=== PATIENT | male | born 1955 | race Caucasian/White ===

== ENCOUNTER 2023-05-19 10:00 | Emergency (ER) | payer OTHER, SELFPAY ==
[2023-05-19 10:06] VITALS: BP 147/81
[2023-05-19 10:38] VITALS: BMI 28.4
--- NOTE | 2023-05-19 10:57 | ED.GENMED ---
History of Present Illness
<AMANDA Hernandez - Last Filed: 05/19/23 15:18>
General
Chief Complaint: Male Genito-Urinary Symptoms
Source: patient
Exam Limitations: none
Time Seen by Provider: 05/19/23 10:36
Nursing documentation reviewed up to this point in time: agreed with
Travel History
Have you had any contact with someone who has COVID-19?: No
Do you have any symptoms of coronavirus? Fever > 100 degrees, chills, cough, shortness of breath, sore throat, loss of taste or smell, muscle aches, or headache?: No
History of Present Illness
History of Present Illness:
Patient is a 67-year-old male who presents to the ER for evaluation. Patient reports 2 days ago he was doing a surfing stimulator the [facility] and strained his left groin and leg. He describes landing in a split type position. He had pain to his
left groin and was seen in urgent care in the [facility]. He had an ultrasound of the room which showed large hematoma. He presents to the ER today complaining of significant bruising and swelling in his scrotum. Mild discomfort. He was on aspirin
prior to injury but stopped aspirin when injury occurred. He denies any difficulty urinating. He does complain of some bruising in his left groin lower abdomen and left thigh. He denies any lightheadedness weakness. He denies any numbness
tingling to the leg or distal foot.
Review of Systems
<AMANDA Hernandez - Last Filed: 05/19/23 15:18>
Review of Systems
Allergies reviewed?: Yes
All Other Systems: ROS reviewed and negative except as documented in HPI and ROS
Constitutional: Reports no symptoms; Denies fever, fatigue or chills
Respiratory: Reports no symptoms
Cardiac: Reports no symptoms
ABD/GI: Reports no symptoms and other (sore to lower abd); Denies nausea or vomiting
: Reports other (scrotum with swelling/ecchymosis ); Denies dysuria, flank pain, incontinence or urgency
Musculoskeletal: Reports other (Left thigh groin pain and ecchymosis)
Skin: Reports no symptoms
Neurological: Reports no symptoms
Hematologic/Lymphatic: Reports no symptoms
Psychiatric: Reports no symptoms
Phy Exam
<AMANDA Hernandez - Last Filed: 05/19/23 15:18>
General Physical Exam
General Presentation: no apparent distress
General age: appears stated age
General Skin: warm and dry
General Habitus: normal
General Mental: alert
Gastrointestinal Exam
Gastrointestinal Exam: soft and other (Minimal lower abdominal tenderness, bruising to the left inguinal area and suprapubic area)
Genitourinary Exam Male
Exam Male: other (Patient with generalized ecchymosis and swelling of scrotum)
Neurological Exam
Neurological Exam: alert and oriented x3
Musculoskeletal Exam
Musculoskeletal Exam: other (Ecchymosis to left groin /inner thigh ; strong distal pulses normal sensation)
Skin Exam
Skin Exam: normal color and warm/dry
Psychiatric Exam
Psychiatric Exam: normal mood/affect
Course
<AMANDA Hernandez - Last Filed: 05/19/23 15:18>
Orders/Labs/Results
Orders:
Orders
05/19/23 10:48
Urinalysis Reflex To Culture Urgent
Date Specimen was Collected: 05/19/23
Time Specimen was Collected: 10:46
Urine Microscopic Reflex Cult Urgent
05/19/23 11:07
US Scrotum Urgent
Comment:
Reason For Exam: bruising swelling
05/19/23 11:11
IV Insert/Care/Rem.- Treatment PRN
05/19/23 11:56
Complete Blood Count/With Diff Urgent
Comprehensive Metabolic Panel Urgent
05/19/23 12:18
CT Pelvis With Iv Contrast Urgent
Comment:
Reason For Exam: lower abd /groin/thigh injury /bruising
Abnormal Lab Results
05/19/23 05/19/23
10:48 11:56
RBC 3.84 L 10^6/uL
(4.70-6.10)
Hgb 12.2 L g/dL
(13.0-18.0)
Hct 35.0 L %
(39.0-52.0)
MCH 31.8 H pg
(27.0-31.0)
Absolute Monos (auto) 0.9 H 10^3/uL
(0.1-0.6)
Lymphocytes % 16.4 L %
(20.5-51.1)
Monocytes % 10.9 H %
(1.7-9.3)
Glucose 104 H mg/dl
(70-99)
AST 61 H U/L
(17-59)
Ur Occult Blood Reflex 1+ A
(Negative)
Leukocyte Esterase Rfl Trace A
(Negative)
Urine RBC 3-6 A /HPF
(0-2)
Urine Bacteria (Reflex) Few A
(Negative)
05/19/23 11:56
05/19/23 11:56
Vital Signs
Initial and Last Documented VS:
Initial Vital Signs
Temp Pulse Resp BP Pulse Ox
98.5 F 75 18 147/81 100
05/19/23 10:06 05/19/23 10:06 05/19/23 10:06 05/19/23 10:06 05/19/23 10:06
Last Documented Vital Signs
Temp Pulse Resp BP Pulse Ox
98.5 F 64 16 125/73 98
05/19/23 10:06 05/19/23 11:57 05/19/23 11:57 05/19/23 11:57 05/19/23 11:57
Overhead Irrigator consulted with Physician
Overhead Irrigator consulted with physician?: Yes
Name of Physician Consulted: humaira
<Rashard Parsons, DO - Last Filed: 05/19/23 11:25>
Orders/Labs/Results
Orders:
Orders
05/19/23 10:48
Urinalysis Reflex To Culture Urgent
Date Specimen was Collected: 05/19/23
Time Specimen was Collected: 10:46
Urine Microscopic Reflex Cult Urgent
05/19/23 11:07
US Scrotum Urgent
Comment:
Reason For Exam: bruising swelling
05/19/23 11:11
IV Insert/Care/Rem.- Treatment PRN
05/19/23 11:56
Complete Blood Count/With Diff Urgent
Comprehensive Metabolic Panel Urgent
05/19/23 12:18
CT Pelvis With Iv Contrast Urgent
Comment:
Reason For Exam: lower abd /groin/thigh injury /bruising
Abnormal Lab Results
05/19/23 05/19/23
10:48 11:56
RBC 3.84 L 10^6/uL
(4.70-6.10)
Hgb 12.2 L g/dL
(13.0-18.0)
Hct 35.0 L %
(39.0-52.0)
MCH 31.8 H pg
(27.0-31.0)
Absolute Monos (auto) 0.9 H 10^3/uL
(0.1-0.6)
Lymphocytes % 16.4 L %
(20.5-51.1)
Monocytes % 10.9 H %
(1.7-9.3)
Glucose 104 H mg/dl
(70-99)
AST 61 H U/L
(17-59)
Ur Occult Blood Reflex 1+ A
(Negative)
Leukocyte Esterase Rfl Trace A
(Negative)
Urine RBC 3-6 A /HPF
(0-2)
Urine Bacteria (Reflex) Few A
(Negative)
05/19/23 11:56
05/19/23 11:56
Vital Signs
Initial and Last Documented VS:
Initial Vital Signs
Temp Pulse Resp BP Pulse Ox
98.5 F 75 18 147/81 100
05/19/23 10:06 05/19/23 10:06 05/19/23 10:06 05/19/23 10:06 05/19/23 10:06
Last Documented Vital Signs
Temp Pulse Resp BP Pulse Ox
98.5 F 64 16 125/73 98
05/19/23 10:06 05/19/23 11:57 05/19/23 11:57 05/19/23 11:57 05/19/23 11:57
<AMANDA Hernandez - Last Filed: 05/19/23 15:18>
MDM/Problems Addressed
Differential Diagnosis Includes:
Not limited to hematoma, groin sprain strain, scrotal hematoma
MDM/Problems Addressed:
Patient is a 67yr old male who presents to the ER for evaluation. Patient had a pulling type injury of his left groin/thigh 2 days ago on vacation. He was in the [facility]. He complained of pain to the right groin and thigh area at that time. An
ultrasound was done of the left groin which showed a large hematoma in the left groin. Patient complains today of increasing swelling in the testicles, bruising and discomfort. He was on aspirin but stopped it when injury occurred. Patient has
obvious ecchymosis swelling to the scrotum however no significant tenderness. He has ecchymosis to lower abdomen and left groin.
Scrotal ultrasound really normal sonographic appearance of the bilateral testicles large amount of diffuse scrotal swelling and edema sonogram findings suspicious for a left quadrant lower muscle tear. labs unremarkable CT pending. Patient was
eval by urology will DC with scrotal support, tramadol. will see urology in 2 d for re-check
1510: CAT scan shows medial left groin hematoma likely arising from a chair of the inferior left rectus muscle. Patient in no acute distress wants to hold off on tramadol would like to take Tylenol only as needed. I did review CAT scan findings
with general surgery Dr. Vazquez who recommends ice compression, switch to heat in the next several days can see patient as an outpatient if needed. Patient stable for discharge home
<AMANDA Hernandez - Last Filed: 05/19/23 15:18>
*Radiology
Radiology exam reviewed: radiology read reviewed
*Pulse Oximetry
Patient hypoxic: no
*Critical Care Note
Total Time (30-74mins, 75-104mins- exclusive of procedures): Not Applicable
<AMANDA Hernandez - Last Filed: 05/19/23 15:18>
Patient Management
Discussion with other providers: Junk Removal Specialist (urology DR Aldair arvizu pt )
ED Attending Note
<AMANDA Hernandez - Last Filed: 05/19/23 15:18>
-
Portions of this chart may have been created with voice recognition software.� Occasional wrong word or��sound alike� substitutions may have occurred due to the inherent limitations of voice recognition software.
<Rashard Parsons DO - Last Filed: 05/19/23 11:25>
ED Attending Note
Patient seen and examined by attending physician: Yes
I performed the substantive portion of visit, reviewed & personally made and approve the management plan that is documented in note by myself or PEYTON.: Yes
ED Attending Note:
Seen with LAYOUT MAN examined independently agree with assessment and plan will reimage with an ultrasound
Discharge Plan
Departure
Patient Disposition: Home (Routine Discharge)
Date of Disposition: 05/19/23
Time of Disposition: 15:11
Patient with high blood pressure during this ER visit?: Yes
Condition: Fair
Covid-19: Not Applicable
Discharge Problem:
Hematoma
Instructions: BLOOD PRESSURE, Hematoma
Referrals:
Ria Veliz MD [Family Provider] -
John Vazquez MD [Active] -
Eddie Quinteros Jr., MD [Active] -
Activity Restrictions/Additional Instructions:
As discussed you may take Tylenol every 4-6 hours for discomfort. Scrotal support compression as discussed affected areas. Continue to ice intermittently for the next 2 to 3 days 20 present time several times a day followed by warm moist heat.
Follow-up with urology as discussed in the next several days please call Sunday for an appointment. You may also follow-up with general surgery.
Avoid heavy lifting . return any worsening of symptoms
Interventions
Interventions:
*Risk Screen - Suicide Last Done: 05/19/23 10:43
*General Assessment Last Done: 05/19/23 10:43
*Neglect/Abuse Screening Last Done: 05/19/23 11:16
ED- Fall Risk Assessment Last Done: 05/19/23 10:43
*ED COVID-19 Vaccine History Last Done: 05/19/23 10:43
ED-Male Genitourinary Assessment Last Done: 05/19/23 10:44
--- NOTE | 2023-05-19 10:59 | EDRN ---
Carmen Kang MANAGER GROUP in room w/ pt at this time.
[2023-05-19 11:04] LABS: Urine Albumin Trace (Neg - Trace); Urine Bilirubin Negative (Negative); Urine Character Clear (Clear); Urine Color Yellow; Urine Glucose Negative (Negative); Urine Ketone Negative (Negative); Urine Leukocyte Trace (Negative); Urine Nitrite Negative (Negative); Urine Occult Blood 1+ (Negative); Urine Specific Gravity 1.025 (<1.030); Urine Urobilinogen Negative (Neg - 1+)
[2023-05-19 11:13] LABS: Urine Mucus Few; Urine Squamous Cell 0-2 /LPF (Few)
[2023-05-19 11:14] LABS: Urine Bacteria Few (Negative); Urine Calcium Oxalate Crystals Seen
[2023-05-19 11:57] VITALS: BP 125/73
[2023-05-19 12:03] LABS: % Basophils 0.3 % (0-2); % Eosinophils 0.4 % (0-6); % Immature Granulocytes 0.3 % (0-0.5); % Lymphocytes 16.4 % (20.5-51.1); % Monocytes 10.9 % (1.7-9.3); % Neutrophils 71.7 % (42.2-75.2); Absolute Lymphocytes 1.3 10^3/uL (1.2-3.4); Absolute Monocytes 0.9 10^3/uL (0.1-0.6); Absolute Neutrophils 5.7 10^3/uL (1.4-6.5); Hemoglobin 12.2 g/dL (13.0-18.0); Mean Corp Hgb Conc. 34.9 g/dL (33.0-37.0); Mean Corpuscular Hgb 31.8 pg (27.0-31.0); Mean Corpuscular Volume 91.1 fL (80.0-94.0); Mean Platelet Volume 9.7 fL (7.4-10.4); Nucleated Red Blood Cells % 0 % (-); Platelet Count 180 10^3/uL (130-400); Red Blood Cell Count 3.84 10^6/uL (4.70-6.10); Red Cell Dist. Width 12.8 % (11.5-14.5); White Blood Cell Count 7.9 10^3/uL (4.8-10.8)
[2023-05-19 12:23] LABS: ALT (SGPT) 26 U/L (0-50); AST (SGOT) 61 U/L (17-59); Albumin 3.9 g/dl (3.5-5.0); Alkaline Phosphatase 72 U/L (38-126); Blood Urea Nitrogen 15 mg/dl (9-20); Calcium 8.8 mg/dl (8.4-10.2); Carbon Dioxide 25 mmol/L (22-30); Chloride 107 mmol/L (98-107); Estimated Creatinine Clearance 83 ml/min; Glucose 104 mg/dl (70-99); Sodium 135 mmol/L (135-145); Total Bilirubin 0.5 mg/dl (0.2-1.3); Total Protein 6.6 g/dl (6.3-8.2); eGFR > 60.00
--- NOTE | 2023-05-19 13:20 | EDRN ---
Dr. Perdomo in to see pt at this time.
--- NOTE | 2023-05-19 14:04 | CON.MD ---
Consultation - Medical
-
see dictated note
pt was on vacation on [employer] machine- feel and struck left groin area with sig hyperextension of left leg
developed painful bulge in left groin- was seen in local ER- u/s showed 8cm groin hematoma
returned home- today came to ER because of sig echymosis of supra pubic region and scrotum
he is having minimal pain
on exam-mild tissue edema of scrotum- sig echymosis of supra-pubic region and scrotum- no perineal bruising
no luts or hematuria
imaging show nl testicles- ct with hematoma appearing to originate form lower rectus structures- sprmatic cord intact- seems diminished in size compared to outside u/s report
plan
resolving groin hematoma- not of gu origin
blood now tracking into scrotum
supportive care/limit activity/scrotal support
will see in office early next week to direct care as needed
--- NOTE | 2023-05-19 14:38 | EDRN ---
Carmen Kang EQUIPMENT ASSOCIATE in room w/ pt at this time.
[2023-05-19 14:55] VITALS: BP 121/76
== END 2023-05-19 15:45 | disposition home or self-care (01) ==
LOC: EMR 10:00
PROVIDERS: Nurse Practitioner; EMERGENCY PHYSICIAN Emergency Medicine; FAMILY PHYSICIAN Family Medicine; OTHER PHYSICIAN Specialist
DX: S30.1XXA Contusion of abdominal wall, initial encounter (principal); W19.XXXA Unspecified fall, initial encounter
CPT/HCPCS: 99285; 72193; 76870; 80053; 81003; 81015; 85025; 93976; Q9967